=== PATIENT | male | born 1995 | race Two or more races ===

== ENCOUNTER 2019-02-06 07:06 | Emergency (ER) | payer SELFPAY ==
[~2019-02-06] VITALS: Ht 177.8 cm; Wt 75.0 kg
[2019-02-06 07:10] VITALS: Ht 177.8 cm; Wt 75.0 kg
[2019-02-06] MEDS ORDERED: STERAPRED DS 1010 MG PO (07:31)
[2019-02-06] MEDS ORDERED: KEFLEX500 MG PO (07:31)
[2019-02-06] MEDS ORDERED: HYDROXYZINE HCL50 MG PO (07:32)
[2019-02-06 07:47] VITALS: BP 122/73
== END 2019-02-06 07:50 | disposition home or self-care (01) ==
LOC: D.ER 07:06
DX: L24.7 Irritant contact dermatitis due to plants, except food (principal); L73.9 Follicular disorder, unspecified